=== PATIENT | female | born 1985 | race American Indian/Alaskan Native ===

== ENCOUNTER 2017-10-13 20:18 | Emergency (ER) | payer BC ==
[2017-10-13 20:52] VITALS: BP 127/83
--- NOTE | 2017-10-13 21:58 | XRay Report ---
FINAL REPORT PROCEDURE: XR CHEST ROUTINE 2V TECHNIQUE: PA and lateral chest radiographs were obtained. CPT 10819 HISTORY: cough COMPARISON: No prior studies are available for comparison. FINDINGS: Heart: Normal. Mediastinum/Vessels: Normal. Lungs/Pleural space: Normal. Bony thorax: No acute osseous abnormality. Other: IMPRESSION: Normal examination.
--- NOTE | 2017-10-14 01:01 | Emergency Department Report ---
- General Chief Complaint: Upper Respiratory Infection Stated Complaint: COUGH FOR A MONTH Time Seen by Provider: 10/14/17 00:50 Source: patient Mode of arrival: Ambulatory Limitations: No Limitations - History of Present Illness Initial Comments: 32 yo female who comes in today due to a cough times one month. She was seen and treated by her PCP and was given prescription medications. She states that she however continues to have the cough. Workup/evaluation unremarkable in the ED. Onset/Timin -: month(s) Severity: mild Severity scale (0 -10): 3 Improves With: nothing Worsens With: other (At undetermined times ) Associated Symptoms: rhinorrhea, nasal congestion, cough - Related Data Previous Rx's Medication Instructions Recorded Last Taken Type Erythromycin [Erythromycin Ophth 0.5 inch OS QID #1 tube 01/28/14 Unknown Rx Oint] Ibuprofen [Motrin] 800 mg PO TID PRN #15 tablet 01/28/14 Unknown Rx Cyclobenzaprine HCl [Flexeril 5 MG 5 mg PO Q8HR #20 tablet 08/19/15 Unknown Rx TAB] guaiFENesin/CODEINE [Robitussin AC] 5 ml PO Q6HR #120 oral.liqd 08/19/15 Unknown Rx traMADol [Ultram 50 MG tab] 50 mg PO Q6HR PRN #20 tablet 08/19/15 Unknown Rx Allergies Allergy/AdvReac Type Severity Reaction Status Date / Time No Known Allergies Allergy Verified 01/28/14 23:32 ED Review of Systems ROS: Stated complaint: COUGH FOR A MONTH Other details as noted in HPI Constitutional: denies: chills, fever Eyes: denies: eye pain, eye discharge, vision change ENT: denies: ear pain, throat pain Respiratory: see HPI, cough Cardiovascular: denies: chest pain, palpitations Endocrine: no symptoms reported Gastrointestinal: denies: abdominal pain, nausea, diarrhea Genitourinary: denies: urgency, dysuria, discharge Musculoskeletal: denies: back pain, joint swelling, arthralgia Skin: denies: rash, lesions Neurological: denies: headache, weakness, paresthesias Psychiatric: denies: anxiety, depression Hematological/Lymphatic: denies: easy bleeding, easy bruising ED Past Medical Hx - Past Medical History Previous Medical History?: No - Surgical History Past Surgical History?: Yes Additional Surgical History: csection ganglion cyst - Social History Smoking Status: Never Smoker Substance Use Type: None - Medications Home Medications: Home Medications Medication Instructions Recorded Confirmed Last Taken Type Erythromycin [Erythromycin Ophth 0.5 inch OS QID #1 tube 01/28/14 Unknown Rx Oint] Ibuprofen [Motrin] 800 mg PO TID PRN #15 tablet 01/28/14 Unknown Rx Cyclobenzaprine HCl [Flexeril 5 MG 5 mg PO Q8HR #20 tablet 08/19/15 Unknown Rx TAB] guaiFENesin/CODEINE [Robitussin AC] 5 ml PO Q6HR #120 oral.liqd 08/19/15 Unknown Rx traMADol [Ultram 50 MG tab] 50 mg PO Q6HR PRN #20 tablet 08/19/15 Unknown Rx ED Physical Exam - General Limitations: No Limitations General appearance: alert, in no apparent distress - Head Head exam: Present: atraumatic, normocephalic - Eye Eye exam: Present: normal appearance - ENT ENT exam: Present: mucous membranes moist - Neck Neck exam: Present: normal inspection - Respiratory Respiratory exam: Present: normal lung sounds bilaterally. Absent: respiratory distress - Cardiovascular Cardiovascular Exam: Present: regular rate, normal rhythm. Absent: systolic murmur, diastolic murmur, rubs, gallop - GI/Abdominal GI/Abdominal exam: Present: soft, normal bowel sounds - Extremities Exam Extremities exam: Present: normal inspection - Back Exam Back exam: Present: normal inspection - Neurological Exam Neurological exam: Present: alert, oriented X3 - Psychiatric Psychiatric exam: Present: normal affect, normal mood - Skin Skin exam: Present: warm, dry, intact, normal color. Absent: rash ED Course Vital Signs 10/13/17 20:43 Temperature 98.9 F Pulse Rate 98 H Respiratory 18 Rate Blood Pressure 127/83 O2 Sat by Pulse 98 Oximetry ED Medical Decision Making - Radiology Data Normal chest radiograph per Radiology. Critical care attestation.: If time is entered above; I have spent that time in minutes in the direct care of this critically ill patient, excluding procedure time. ED Disposition Clinical Impression: Cough, Upper respiratory infection, viral Disposition: DC-01 TO HOME OR SELFCARE Is pt being admited?: No Does the pt Need Aspirin: No Condition: Stable Instructions: Chronic Cough (ED), Upper Respiratory Infection (ED) Additional Instructions: Please follow up with your provider on discharge. Referrals: SHANTELLE BARBOUR MD [Primary Care Provider] - 3-5 Days Time of Disposition: 01:05
== END 2017-10-14 01:15 | disposition home or self-care (01) ==
LOC: ED 20:18 → EEVIPCON 20:18 → ED 10-14 01:15
DX: J06.9 Acute upper respiratory infection, unspecified (principal)
CPT/HCPCS: 71020

== ENCOUNTER 2018-05-07 12:36 | Outpatient (CLI) | payer BC ==
--- NOTE | 2018-05-07 13:43 | Ultrasound Report ---
RIGHT BREAST ULTRASOUND: 05/07/18 12:36:00 CLINICAL: 32 year-old with an itchy dry patch on her nipple. COMPARISON: None. FINDINGS: Ultrasound of the right breast(including all four quadrants and the retroareolar area) was performed and demonstrated normal fatty and fibroglandular structures. No mass, cyst or shadowing. I examined her breast and there is a dark brown scaly patch of skin on the areola at approximately 11 o'clock. It is slightly smaller than a dime. IMPRESSION: Negative right breast ultrasound but a mildly suspicious skin lesion of the right areola which needs additional evaluation. Recommend consultation with a breast surgeon. BI-RADS 4A -- Mildly Suspicious
== END 2018-05-07 12:37 | disposition home or self-care (01) ==
LOC: SPVWC 12:36
PROVIDERS: ATTEND Nurse Practitioner Gerontology
DX: N64.59 Other signs and symptoms in breast (principal)

== ENCOUNTER 2021-05-27 13:36 | Emergency (ER) | payer BC ==
[2021-05-27 14:48] VITALS: BP 157/86
[2021-05-27] MEDS ORDERED: FLUORESCEIN 1 MG STRIP OP ONE (16:40)
[2021-05-27] MEDS ORDERED: TETRACAINE 0.5% OPHTH SOLN 4ML OU STA (16:40)
--- NOTE | 2021-05-27 16:40 | Emergency Department Report ---
ED Eye Problem HPI - General Chief complaint: Eye Problems Stated complaint: EYE SWELLING Time Seen by Provider: 05/27/21 15:57 Source: patient Mode of arrival: Ambulatory Limitations: No Limitations - History of Present Illness Initial comments: 35-year-old female presents to the ER today with complaints of redness to her right eyelid. Patient states that she noticed redness to her medial corner of the right eye while she was driving today. She states that this occurred just prior to arrival. She denies any injury to the eye or getting anything in the eye. She states that she feels a burning sensation and throbbing in that area of the eye. She denies any eye itching. She reports mild blurry vision. She denies any mucus drainage, or increased tearing. She states when she woke up this morning her eye was fine. She does not wear glasses or contacts. She does not grind or do any welding. She denies any pain to her eye lids or any swe lling to her eyelids. She reports no photophobia. She states that she had similar symptoms on May 19 but it only lasted an hour and went away. chief complaint: eye redness -: days(s) ( today ) - Related Data Previous Rx's Medication Instructions Recorded Last Taken Type Ibuprofen [Motrin] 800 mg PO TID PRN #15 tablet 01/28/14 Unknown Rx Cyclobenzaprine HCl [Flexeril 5 MG 5 mg PO Q8HR #20 tablet 08/19/15 Unknown Rx TAB] guaiFENesin/CODEINE [Robitussin AC] 5 ml PO Q6HR #120 oral.liqd 08/19/15 Unknown Rx traMADoL [Ultram 50 MG tab] 50 mg PO Q6HR PRN #20 tablet 08/19/15 Unknown Rx Erythromycin [Erythromycin Ophth 0.5 inch OD QID #1 tube 05/27/21 Unknown Rx Oint] Allergies Allergy/AdvReac Type Severity Reaction Status Date / Time No Known Allergies Allergy Verified 01/28/14 23:32 ED Review of Systems ROS: Stated complaint: EYE SWELLING Other details as noted in HPI Comment: All other systems reviewed and negative Constitutional: denies: chills, fever Eyes: eye pain, vision change, other (right eye redness). denies: eye discharge ENT: denies: ear pain, throat pain, dental pain, hearing loss, epistaxis, congestion Respiratory: denies: cough, shortness of breath, wheezing Cardiovascular: denies: chest pain, palpitations, dyspnea on exertion, edema, syncope, paroxysmal nocturnal dyspnea Gastrointestinal: denies: abdominal pain, nausea, vomiting, diarrhea, constipation, hematemesis, hematochezia Genitourinary: denies: urgency, dysuria, frequency, hematuria, discharge, abnormal menses, dyspareunia Musculoskeletal: denies: back pain, joint swelling, arthralgia Skin: denies: rash, lesions, change in color, change in hair/nails, pruritus Neurological: denies: headache, weakness, numbness, paresthesias, confusion, abnormal gait, vertigo Psychiatric: denies: anxiety, depression, auditory hallucinations, visual hallucinations, homicidal thoughts, suicidal thoughts Hematological/Lymphatic: denies: easy bleeding, easy bruising, swollen glands ED Past Medical Hx - Past Medical History Previous Medical History?: No - Surgical History Past Surgical History?: Yes Additional Surgical History: csection ganglion cyst - Social History Smoking Status: Never Smoker Substance Use Type: Alcohol - Medications Home Medications: Home Medications Medication Instructions Recorded Confirmed Last Taken Type Ibuprofen [Motrin] 800 mg PO TID PRN #15 tablet 01/28/14 Unknown Rx Cyclobenzaprine HCl [Flexeril 5 MG 5 mg PO Q8HR #20 tablet 08/19/15 Unknown Rx TAB] guaiFENesin/CODEINE [Robitussin AC] 5 ml PO Q6HR #120 oral.liqd 08/19/15 Unknown Rx traMADoL [Ultram 50 MG tab] 50 mg PO Q6HR PRN #20 tablet 08/19/15 Unknown Rx Erythromycin [Erythromycin Ophth 0.5 inch OD QID #1 tube 05/27/21 Unknown Rx Oint] ED Physical Exam - General Limitations: No Limitations General appearance: alert, in no apparent distress - Head Head exam: Present: atraumatic, normocephalic, normal inspection - Eye Eye exam: Present: normal appearance, PERRL, EOMI, conjunctival injection (mild - medial corner right eye ). Absent: scleral icterus, nystagmus, periorbital swelling, periorbital tenderness Pupils: Present: normal accommodation, other (jerome lamp exam show no corneal abrasion, ulcerations, dendritic lesions or any other abnormality) - Expanded Eye Exam Expanded Visual acuity (R) = 20/: 20 Visual acuity (L) = 20/: 15 With correction: No - ENT ENT exam: Present: normal exam, mucous membranes moist - Neck Neck exam: Present: normal inspection, full ROM - Respiratory Respiratory exam: Present: normal lung sounds bilaterally. Absent: respiratory distress, wheezes, rales, rhonchi - Cardiovascular Cardiovascular Exam: Present: regular rate, normal rhythm, normal heart sounds - Neurological Exam Neurological exam: Present: alert, oriented X3, CN II-XII intact, normal gait - Psychiatric Psychiatric exam: Present: normal affect, normal mood - Skin Skin exam: Present: intact ED Course Vital Signs 05/27/21 14:47 Temperature 99.3 F Pulse Rate 101 H Respiratory 20 Rate Blood Pressure 157/86 [Right] O2 Sat by Pulse 99 Oximetry ED Medical Decision Making - Medical Decision Making Patient with mild erythema to the medial corner of the conjunctiva of the right eye. There is no mucus drainage or tearing. Jerome lamp exam was unremarkable. No hyphema or red cells apparent in the anterior chamber of the eye. She has no periorbital swelling, pain or periorbital cellulitis. Visual acuity was normal. No apparent foreign body noted. Exact cause of the erythema at this time unclear but she will be started on antibiotics for possible infection but I did discuss with patient in detail that she should follow-up with the bristle machine operator for further evaluation especially if her symptoms are not improving with antibiotic ointment. Patient expressed understanding of instructions and agree with plan. Patient was stable at time of discharge. Critical care attestation.: If time is entered above; I have spent that time in minutes in the direct care of this critically ill patient, excluding procedure time. ED Disposition Clinical Impression: Conjunctivitis Disposition: DC-01 TO HOME OR SELFCARE Is pt being admited?: No Does the pt Need Aspirin: No Condition: Stable Instructions: Bacterial Conjunctivitis, Adult, [id number], Viral Conjunctivitis, Adult Additional Instructions: I recommend the use antibiotic ointment as prescribed. You can take Tylenol or ibuprofen [id number] to help with any pain. Recommend that you follow-up with the bristle machine operator listed on your discharge instructions especially if your symptoms do not get better or worse. Return to the ER if your symptoms changes in any way. Prescriptions: Erythromycin [Erythromycin Ophth Oint] 0.5 inch OD QID #1 tube Referrals: OLEG ANDRADE MD [Staff Physician] - 3-5 Days (opthamology ) Forms: Work/School Release Form(ED) Time of Disposition: 17:09
== END 2021-05-27 17:22 | disposition home or self-care (01) ==
LOC: ED 13:36
DX: H10.9 Unspecified conjunctivitis (principal); Z72.89 Other problems related to lifestyle; Z98.890 Other specified postprocedural states; Z79.899 Other long term (current) drug therapy
CPT/HCPCS: 99283